=== PATIENT | female | born 1980 | race Caucasian/White ===

== ENCOUNTER 2020-03-13 19:04 | Inpatient (IN) ==
[2020-03-13] MEDS ORDERED: OLANZapine 10 MG VIAL IM ONE (19:15)
[2020-03-13] MEDS ORDERED: OLANZapine 10 MG VIAL ONE (19:16)
[2020-03-13] MEDS ORDERED: Water for inj. (sterile) 10 ML ONE (19:17)
[2020-03-13 19:52] LABS: Bilirubin,Urine Negative (Negative); Blood,Urine Negative (Negative); Clarity,Urine Clear (Clear); Color,Urine Light-Yellow (Yellow); Glucose,Urine (UA) Normal (Normal); Ketones,Urine Negative (Negative); Leukocyte Esterase,Urine Trace (Negative); Mucus,Urine Few per lpf (None-Few); Nitrite,Urine Negative (Negative); PH,Urine 6.5 pH Units (5.0-8.0); Protein,Urine Negative (Neg-Trace); RBC,Urine 0-3 per hpf (0-3); Specific Gravity,Urine 1.024 (1.010-1.025); Urobilinogen,Urine Normal (Normal); WBC,Urine 0-3 per hpf (0-3)
[2020-03-13 19:56] LABS: Basophils # 0.1 K/mcL (0.0-0.2); Basophils % 0.8 %; Eosinophils # 0.1 K/mcL (0.0-0.6); Eosinophils % 1.2 %; Hemoglobin 11.6 g/dL (11.5-15.4); Immature Granulocytes % 0.3 % (0-4); Lymphocytes # 3.4 K/mcL (0.6-4.6); Lymphocytes % 52.1 %; Mean Corpuscular HGB Conc 33.1 g/dL (31.6-35.5); Mean Corpuscular Hemoglobin 31.2 pg (28.0-33.3); Mean Corpuscular Volume 94.1 fL (83.0-100.0); Mean Platelet Volume 9.7 fL (9.4-12.4); Monocytes # 0.3 K/mcL (0.0-1.3); Monocytes % 4.6 %; Neutrophils # 2.7 K/mcL (1.6-8.9); Platelet Count 253 K/mcL (140-400); Red Blood Count 3.72 M/mcL (3.82-4.97); Red Cell Distribution Width 13.1 % (11.5-14.5); White Blood Count 6.5 K/mcL (4.3-11.1)
[2020-03-13 20:06] LABS: Amphetamine Screen,Urine Positive ng/mL (Cutoff=1000); Barbiturate Screen,Urine Negative ng/mL (Cutoff=200); Benzodiazepines Screen,Urine Positive ng/mL (Cutoff=200); Cannabinoid Screen,Urine Negative ng/mL (Cutoff = 50); Cocaine Screen,Urine Negative ng/mL (Cutoff= 300); Opiate Screen,Urine Negative ng/mL (Cutoff=300); Phencyclidine Screen,Urine Negative ng/mL (Cutoff=25)
[2020-03-13 20:11] LABS: Estimated Average Glucose 111 mg/dl; Hemoglobin A1C 5.5 %
[2020-03-13 20:13] LABS: Acetaminophen < 10 mcg/mL (10-20); BUN/Creatinine Ratio 18 (6-26); Blood Urea Nitrogen 11 mg/dL (6-20); Carbon Dioxide 24 mEq/L (23-29); Chloride 108 mEq/L (98-107); Chol/HDL Ratio 7.5 (0-4.9); Cholesterol 187 mg/dL (< 200); Ethanol < 10 mg/dL (Less than 10); Glucose 92 mg/dL (70-105); HDL Cholesterol 25 mg/dL (40-59); LDL Cholesterol,Calculated 87 mg/dL (< 100); Osmolality,Calculated 291 (280-300); Salicylate < 2.5 mg/dL (15.0-30.0); Sodium 141 mEq/L (136-145); Triglycerides 376 mg/dL (< 150); eGFR For African Americans > 60 (> 60); eGFR For Non-African Americans > 60 (> 60)
[2020-03-13] MEDS ORDERED: Acetaminophen 325 MG TABLET PO PRN ×2 (22:03→22:34)
[2020-03-13] MEDS ORDERED: hydrOXYzine pamoate 25 MG CAPSULE PO PRN ×2 (22:03→22:34)
[2020-03-13] MEDS ORDERED: haloperidoL 5 MG TABLET PO PRN (22:03)
[2020-03-13] MEDS ORDERED: Haloperidol Lactate 5 MG/ML VIAL IM PRN ×2 (22:03→22:34)
[2020-03-13] MEDS ORDERED: *HR* LORazepam 2 MG/ML VIAL IM PRN ×2 (22:03→22:34)
[2020-03-13] MEDS ORDERED: *HR* LORazepam 1 MG TABLET PO PRN ×2 (22:03→22:34)
[2020-03-13] MEDS ORDERED: QUEtiapine Fumarate 25 MG TABLET PO PRN ×2 (22:03→22:34)
[2020-03-13] MEDS ORDERED: Mag Hydrox/Al Hydrox/Simeth 30 ML UDC PO PRN ×2 (22:03→22:34)
[2020-03-13] MEDS ORDERED: MOM Conc 10 ML UD.LIQ PO PRN ×2 (22:03→22:34)
[2020-03-14] MEDS: diazePAM 5 MG TABLET PO SCH ×2 (12:28→20:05)
[2020-03-15 08:49] VITALS: BP 103/75
[2020-03-15] MEDS: diazePAM 5 MG TABLET PO SCH (08:53)
== END 2020-03-15 10:15 | disposition home or self-care (01) | DRG 753 ==
LOC: EMEROOARM 19:04 → 1ANU 22:20
PROVIDERS: ADMIT Psychiatry & Neurology Psychiatry; ATTEND Psychiatry & Neurology Psychiatry